=== PATIENT | male | born 1990 | race Hispanic/Latino ===

== ENCOUNTER 2019-02-06 06:47 | Emergency (ER) | payer OTHER ==
[2019-02-06] MEDS ORDERED: Ketorolac Tromethamine 60 MG/2 ML VIAL ONE (07:14)
== END 2019-02-06 07:31 | disposition home or self-care (01) ==
LOC: NAV ERS 06:47
DX: S39.012A Strain of muscle, fascia and tendon of lower back, initial encounter (principal); X50.1XXA Overexertion from prolonged static or awkward postures, initial encounter
CPT/HCPCS: 80305; 96372; 99283; J1885